=== PATIENT | female | born 1955 | race Caucasian/White ===

== ENCOUNTER 2019-07-27 22:13 | Emergency (ER) | payer OTHER, MEDICAID ==
[~2019-07-27] VITALS: Ht 165.1 cm; Wt 83.9 kg
[2019-07-27 22:24] VITALS: BP 133/69; Ht 165.1 cm; Wt 83.9 kg
== END 2019-07-28 | disposition home or self-care (01) ==
LOC: ED 22:13
DX: T83.018A Breakdown (mechanical) of other urinary catheter, initial encounter (principal); I10 Essential (primary) hypertension; E11.9 Type 2 diabetes mellitus without complications

== ENCOUNTER 2019-08-18 14:22 | Emergency (ER) | payer OTHER, MEDICAID ==
[~2019-08-18] VITALS: Ht 167.6 cm; Wt 86.2 kg
[2019-08-18 14:29] VITALS: Ht 167.6 cm; Wt 86.2 kg
[2019-08-18 19:22] VITALS: BP 108/57
== END 2019-08-18 19:22 | disposition home or self-care (01) ==
LOC: ED 14:22
DX: M71.21 Synovial cyst of popliteal space [Baker], right knee (principal); R60.0 Localized edema; I10 Essential (primary) hypertension; E11.9 Type 2 diabetes mellitus without complications
CPT/HCPCS: Q0092

== ENCOUNTER 2019-10-03 13:38 | Emergency (ER) | payer OTHER, MEDICAID ==
[~2019-10-03] VITALS: Ht 167.6 cm; Wt 83.1 kg
[2019-10-03 14:15] VITALS: BP 118/55; Ht 167.6 cm; Wt 83.1 kg
== END 2019-10-03 15:55 | disposition home or self-care (01) ==
LOC: ED 13:38
DX: M54.30 Sciatica, unspecified side (principal); R60.0 Localized edema; I10 Essential (primary) hypertension; E11.9 Type 2 diabetes mellitus without complications; Z98.890 Other specified postprocedural states
CPT/HCPCS: J3010